=== PATIENT | male | born 1980 | race Two or more races ===

== ENCOUNTER 2020-09-22 22:19 | Emergency (ER) | payer OTHER ==
[~2020-09-22] VITALS: Ht 182.9 cm; Wt 99.8 kg
[2020-09-22 22:24] VITALS: BP 138/68
--- NOTE | 2020-09-22 22:51 | NUR ---
PT REFUSED WOUND CARE
== END 2020-09-23 00:02 ==
LOC: ER 22:19
DX: S00.81XA Abrasion of other part of head, initial encounter (principal); Z60.2 Problems related to living alone; Z28.9 Immunization not carried out for unspecified reason; W22.8XXA Striking against or struck by other objects, initial encounter; Y93.89 Activity, other specified; Y92.89 Other specified places as the place of occurrence of the external cause; Y99.8 Other external cause status

== ENCOUNTER 2020-09-24 12:38 | Emergency (ER) | payer OTHER ==
[~2020-09-24] VITALS: Ht 177.8 cm; Wt 65.8 kg
[2020-09-24 12:52] VITALS: BP 111/74
== END 2020-09-24 13:35 ==
LOC: ER 12:41
DX: S00.01XA Abrasion of scalp, initial encounter (principal); S69.81XA Other specified injuries of right wrist, hand and finger(s), initial encounter; Z60.2 Problems related to living alone; X58.XXXA Exposure to other specified factors, initial encounter; Y93.89 Activity, other specified; Y92.89 Other specified places as the place of occurrence of the external cause; Y99.8 Other external cause status